=== PATIENT | female | born 1970 | race Caucasian/White ===

== ENCOUNTER → 2019-08-15 | Day surgery (SDC) | payer OTHER ==
--- NOTE | 2019-08-15 12:36 | OP ---
DATE OF OPERATION: 08/15/2019 PREOPERATIVE DIAGNOSIS: Left breast mass 7 o'clock, 8 cm from the nipple. POSTOPERATIVE DIAGNOSIS: Left breast mass 7 o'clock, 8 cm from the nipple. PROCEDURE: Left ultrasound-guided core biopsy with clip placement. ANESTHESIA: Local. ATTENDING SURGEON: Jeremy Tay MD ESTIMATED BLOOD LOSS: Minimal. COMPLICATIONS: None. DESCRIPTION OF PROCEDURE: Patient was made aware of the risks and benefits of the procedure and consented. She was placed in a supine position. Under sterile conditions with 2% lidocaine for local anesthesia, a small yasmin was made in the skin. Using a 10-gauge suction biopsy device via lateral approach under ultrasound guidance, 7 cores were obtained and submitted to Pathology. Likewise, under ultrasound guidance, a U-shaped clip was placed into the biopsy region. Well tolerated by patient. Steri-Strips and a sterile bandage were applied. I will contact her with results. JEREMY TAY M.D. [id number]
--- NOTE | 2019-08-16 16:17 | PATH ---
Surgical Pathology Report Patient Name: SHOSHANA NESS Med. Rec. #: [id number] /Age/Gender: 1970 (Age: 48) / F Account: [id number] Location: [facility] Taken: 08/15/2019 Received: 08/15/2019 Reported: 08/16/2019 Physicians: Jeremy Tay M.D. Specimen(s) Received LEFT BREAST CORE BIOPSY 7 N 8 Clinical History Nonpalpable lesion Ultrasound findings: Highly suspicious/malignant Final Diagnosis Breast, left, 7:00, 8 cm fn, core biopsy: Benign breast tissue showing stromal fibrosis. Comment: Correlation with radiologic findings is suggested. Electronically Signed Ernestina Puente M.D. Gross Description Received in formalin labeled "left breast biopsy 7:00, 8cmfn," is a 2.5 x 1.7 x 0.3 cm aggregate of hampton-yellow, irregular to cylindrical portions of fibroadipose tissue. The formalin is filtered and the specimen is entirely submitted in one cassette. Time to formalin fixation: < 1 is minute Total formalin fixation time: Approximately 9 hours. /08/15/2019 saudi08/15/2019
== END | disposition home or self-care (01) ==
LOC: FRADUS-SUR 08:41
PROVIDERS: ATTEND Surgery Surgical Oncology
PROC: 0HBU3ZX Excision of Left Breast, Percutaneous Approach, Diagnostic (ICD-10-PCS; principal; 2019-08-15)
DX: N60.32 Fibrosclerosis of left breast (principal); N63.24 Unspecified lump in the left breast, lower inner quadrant
CPT/HCPCS: 19083; 87899; 88305-TC; A4648